=== PATIENT | female | born 1965 | race Caucasian/White ===

== ENCOUNTER 2022-02-07 10:28 | Emergency (ER) | payer BC, SELFPAY ==
--- NOTE | 2022-02-07 10:35 | ED.URI ---
HPI - URI/Sore Throat General Chief Complaint: Upper Respiratory Infection Stated Complaint: Cough,Congestion Time Seen by Provider: 02/07/22 10:35 Source: patient Mode of arrival: ambulatory Limitations: no limitations History of Present Illness HPI Narrative: Alesha is a 57-year-old female patient presenting to clinic today with complaints of coughing and congestion x3 weeks. She reports she developed sinus pressure and pain as well with yellowish green discharge. She denies any fever but has had some fatigue and chills. Patient also states when she gets this she gets reactive airway and is requesting a refill on her Advair inhaler. MD elicited complaint: sore throat and nasal congestion Related Data Home Medications Medication Instructions Recorded Confirmed levalbuterol tartrate 45 2 puff inhalation PRN PRN 02/07/22 02/07/22 mcg/actuation aerosol inhaler Shortness Of Breath Or Wheezing Allergies Allergy/AdvReac Type Severity Reaction Status Date / Time erythromycin base Allergy Mild Hives Verified 02/07/22 10:43 Sulfa (Sulfonamide Allergy Mild Hives Verified 02/07/22 10:54 Antibiotics) thimerosal Allergy Mild Hives Verified 02/07/22 10:43 cefaclor AdvReac Intermediate Joint Pain Verified 02/07/22 10:54 latex AdvReac Mild Itching Verified 02/07/22 10:53 Review of Systems Review of Systems: Pertinent positives per HPI. Patient denies any fever, rash, visual changes, dizziness, sore throat, shortness of breath, chest pain, palpitations, nausea, vomiting, diarrhea, constipation, abdominal pain, or any urinary issues. PMFSH Comments At the time of my signature, I reviewed and agree with the nursing past medical, surgical, social, and family history. There is no relevant family history pertinent to the patient complaint. Exam Narrative: General: Well-developed, well nourished, in no apparent distress Head: Normocephalic, atraumatic Eyes: Pupils equally round and reactive to light bilaterally, EOM intact, sclera and conjunctive clear, no discharge, lids normal Ears: TMs intact and dull, ear canals clear, no drainage, grossly hearing normal. Nose: Nares patent, yellow nasal discharge, severe inflammation, maxillary and frontal sinus tenderness. Mouth: Oral pharynx without lesions or masses, good dentition, MMM. Postnasal drip Neck: Supple, trachea midline, no enlargement of anterior or posterior cervical nodes, no thyroid masses or goiter palpable. Cardio: Regular rate and rhythm, s1 and s2 normal, no murmur appreciated. Resp: Clear to auscultation bilaterally, no rhonchi, rales, wheezing or rubs Course Course Emergency Course: Portions of this record may have been created with voice recognition software. Level of Care: Express Care Visit Vital Signs Vital signs: Vital Signs Temperature 36.5 C 02/07/22 10:47 Pulse Rate 85 02/07/22 10:47 Respiratory Rate 18 02/07/22 10:47 Blood Pressure 134/80 02/07/22 10:47 Pulse Oximetry 100 02/07/22 10:47 Oxygen Delivery Room Air 02/07/22 10:47 Temperature 36.5 C 02/07/22 10:47 Pulse Rate 85 02/07/22 10:47 Respiratory Rate 18 02/07/22 10:47 Blood Pressure 134/80 02/07/22 10:47 Pulse Oximetry 100 02/07/22 10:47 Oxygen Delivery Room Air 02/07/22 10:47 Vital signs reviewed MDM - URI/Sore Throat MDM Narrative Medical decision making narrative: At the time of visit patient is resting comfortably on the exam table. I suspect patient has acute rhinosinusitis and will treat with a prescription of Augmentin and prednisone. Supportive measures were discussed with the patient she voiced understanding of discharge instructions and agrees to treatment plan. Also gave refill for Advair. Differential Diagnosis Differential diagnosis: Likely upper respiratory infection, otitis media, sinusitis, viral infection, bronchitis, influenza, pharyngitis and other (COVID) Discharge Plan Discharge Clinical Impression: Acute bacterial
[2022-02-07 10:47] VITALS: BP 134/80; PULSE 85; RESP 18; TEMP 36.5; O2SAT 100
== END 2022-02-07 10:57 | disposition home or self-care (01) ==
PROVIDERS: Emergency Provider Nurse Practitioner Family
DX: J01.90 Acute sinusitis, unspecified (principal)
CPT/HCPCS: 99213; G0463

== ENCOUNTER 2022-09-22 11:47 | Emergency (ER) | payer BC, SELFPAY ==
[2022-09-22 12:26] VITALS: BP 125/82; PULSE 98; RESP 18; TEMP 36.4; O2SAT 98
--- NOTE | 2022-09-22 12:35 | ED.SKABFB ---
HPI - Skin/Abscess/Foreign Bdy General Chief complaint: Urogenital-Female Stated complaint: Lip Swelling Time Seen by Provider: 09/22/22 12:30 Source: patient Mode of arrival: ambulatory Limitations: no limitations History of Present Illness HPI narrative: Alesha is a 57-year-old female patient presenting to the clinic today with complaints of lower lip swelling that began this morning. She reports she has been putting ice on her lip and this has helped some. Denies any new medications, foods, lotions, lip balm, or environmental changes. Reports she was out on the boat all day yesterday but does not feel so her lip got sunburn. She denies any difficulty breathing, difficulty swallowing, tongue swelling, or drooling Related Data Home Medications Medication Instructions Recorded Confirmed levalbuterol tartrate 45 2 puff inhalation PRN PRN 02/07/22 02/07/22 mcg/actuation aerosol inhaler Shortness Of Breath Or Wheezing Allergies Allergy/AdvReac Type Severity Reaction Status Date / Time erythromycin base Allergy Mild Hives Verified 02/07/22 10:43 Sulfa (Sulfonamide Allergy Mild Hives Verified 02/07/22 10:54 Antibiotics) thimerosal Allergy Mild Hives Verified 02/07/22 10:43 cefaclor AdvReac Intermediate Joint Pain Verified 02/07/22 10:54 latex AdvReac Mild Itching Verified 02/07/22 10:53 Review of Systems Review of Systems: Pertinent positives per HPI. Patient denies any fever, chills, rash, headache, visual changes, dizziness, cough, runny nose, sore throat, shortness of breath, chest pain, palpitations, nausea, vomiting, diarrhea, constipation, abdominal pain, or any urinary issues. PMFSH Comments At the time of my signature, I reviewed and agree with the nursing past medical, surgical, social, and family history. There is no relevant family history pertinent to the patient complaint. Exam Narrative: General: Well-developed, well nourished, in no apparent distress Head: Normocephalic, atraumatic Eyes: Pupils equally round and reactive to light bilaterally, EOM intact, sclera and conjunctive clear, no discharge, lids normal Ears: TMs intact and clear, ear canals clear, no drainage, grossly hearing normal. Nose: Nares patent, no discharge, no inflammation, no sinus tenderness. Mouth: Oropharynx without lesions or masses, good dentition, MMM. Lower lip swelling , mildly tender, no drainage, no drooling no difficulty swallowing, Neck: Supple, trachea midline, no enlargement of anterior or posterior cervical nodes, no thyroid masses or goiter palpable. Cardio: Regular rate and rhythm, s1 and s2 normal, no murmur appreciated. Resp: Clear to auscultation bilaterally anteriorly and posteriorly, no rhonchi, rales, wheezing or rubs Course Course Emergency Course: Portions of this record may have been created with voice recognition software. Level of Care: Express Care Visit Vital Signs Vital signs: Vital Signs Temperature 36.4 C 09/22/22 12:26 Pulse Rate 98 09/22/22 12:26 Respiratory Rate 18 09/22/22 12:26 Blood Pressure 125/82 09/22/22 12:26 Pulse Oximetry 98 09/22/22 12:26 Oxygen Delivery Room Air 09/22/22 12:26 Temperature 36.4 C 09/22/22 12:26 Pulse Rate 98 09/22/22 12:26 Respiratory Rate 18 09/22/22 12:26 Blood Pressure 125/82 09/22/22 12:26 Pulse Oximetry 98 09/22/22 12:26 Oxygen Delivery Room Air 09/22/22 12:26 Vital signs reviewed MDM - Skin/Abscess/Foreign Bdy MDM Narrative Medical decision making narrative: At the time of visit patient is resting comfortably on the exam table. Patient has lower lip swelling. Will send in prescription for some prednisone for the patient. Supportive measures were discussed with the patient she voiced understanding discharge instructions agrees to treatment plan. Differential Diagnosis Differential diagnosis: Likely other (Angioedema, lip swelling, contact dermatitis) Discharge Plan Discharge Clinical
== END 2022-09-22 12:40 | disposition home or self-care (01) ==
PROVIDERS: Emergency Provider Nurse Practitioner Family; PCP Internal Medicine
DX: R22.0 Localized swelling, mass and lump, head (principal)
CPT/HCPCS: 99213; G0463